=== PATIENT | female | born 1985 | race Caucasian/White ===

== ENCOUNTER 2019-01-30 04:00 | Inpatient (IN) ==
[2019-01-30] MEDS ORDERED: *HR* Nalbuphine 10 MG/ML AMPUL IVP PRN (05:08)
[2019-01-30] MEDS ORDERED: Famotidine 20 MG/2 ML VIAL IVP PRN (05:08)
[2019-01-30] MEDS ORDERED: Metoclopramide 10 MG/2 ML VIAL IVP PRN (05:08)
[2019-01-30] MEDS ORDERED: Naloxone 0.4 MG/ML INJ IVP PRN (05:08)
[2019-01-30] MEDS ORDERED: Ringers Solution, Lactated 1,000 ML IVC SCH (05:15)
[2019-01-30] MEDS ORDERED: Oxytocin 20 units/ LR 1000 mL 20 UNIT/1,000 ML BAG IVC SCH ×2 (05:30→18:24)
--- NOTE | 2019-01-30 05:32 | Event Note ---
Date of Encounter: 01/30/19 Time of Encounter: 05:31 Cervical ripening balloon inserted without difficulty, 40mL sterile water instilled. Patient tolerated with minimal discomfort.
[2019-01-30] MEDS ORDERED: Bupivacaine-MPF 0.25% 10 ML VIAL EP ONE (09:12)
[2019-01-30] MEDS ORDERED: *HR* FentaNYL (PF) 100 MCG/2 ML VIAL EP ONE (09:12)
[2019-01-30] MEDS ORDERED: Epidural Premix (fent/bupiv) 110 ML EP SCH (09:15)
[2019-01-30] MEDS ORDERED: Bupivacaine-MPF 0.25% 10 ML VIAL ONE (09:16)
[2019-01-30] MEDS ORDERED: *HR* FentaNYL (PF) 100 MCG/2 ML VIAL ONE (09:16)
[2019-01-30 09:33] LABS: Basophils % 0.2 %; Eosinophils % 0.3 %; Hemoglobin 10.6 g/dL (11.5-15.4); Immature Granulocytes % 0.7 % (0-4); Mean Corpuscular HGB Conc 33.1 g/dL (31.6-35.5); Mean Corpuscular Hemoglobin 29.9 pg (28.0-33.3); Mean Corpuscular Volume 90.4 fL (83.0-100.0); Monocytes # 0.7 K/mcL (0.0-1.3); Monocytes % 6.9 %; Neutrophils # 5.2 K/mcL (1.6-8.9); Platelet Count 165 K/mcL (140-400); Red Blood Count 3.54 M/mcL (3.82-4.97); Red Cell Distribution Width 12.8 % (11.5-14.5); Segmented Neutrophils % 51.9 %
--- NOTE | 2019-01-30 11:23 | Anesthesia Evaluation PreOp ---
Date of Encounter: 01/30/19 Time of Encounter: 10:38 - Past History Planned Operation: JONN Cardiac History: Denies any Significant Hx Pulmonary History: Denies Any Significant HX MACHINE ENGRAVER History: Denies Any Significant HX Other Medical History: Denies Any Significant HX Anesthesia History: No Prior Anesthetic Complications (JONN x 1--no issues; Denies personal and family h/o GA complications) : Yes Alcohol Use: none Drug use: none Medications and Allergies Tablet 1 tab PO DAILY 01/30/19 [History] Allergy/AdvReac Type Severity Reaction Status Date / Time Cefprozil [From Cefzil] Allergy Hives Verified 01/30/19 04:43 - Meds/Allergy Pre-op Review Medications Reviewed: Yes Allergies Reviewed: Yes Beta Blockers on Current Med List: No Anesthesia Results - Labs 01/30/19 05:00 Anesthesia Exam 122/80, HR 62, RR 20 O2 Sat Height 1.75 m Weight 78.471 kg NPO (# of Hours): solids >7hrs Pain Scale: 8 Pain Scale Used: Hawk-Mcfadden (Faces) - HEENT Pupil (Motor): Pupils equal Mallampati: II Teeth: Normal Oral Opening: Greater than 3 - MACHINE ENGRAVER LOC: Oriented MACHINE ENGRAVER Motor: Normal RUE, Normal LUE, Normal RLE, Normal LLE, Normal Face MACHINE ENGRAVER Sensory: Normal: RUE, LUE, RLE, LLE, Face - Cardiac Rhythm: Regular Murmur: None - Pulmonary Breath Sounds: bilateral Clear Respiratory Effort: Symmetrical Anesthesia Assess/Plan ASA Score: 2 Level of consciousness: Cooperative, Oriented, Tranquil Anesthetic Plan: Epidural Autologous Blood: No Monitoring Plan: Standard Monitors Recovery Plan: Other
--- NOTE | 2019-01-30 11:25 | Anesthesia Procedures ---
Date of Encounter: 01/30/19 Time of Encounter: 11:23 Procedures: Anesthesia - Epidural/Spinal Patient ID/Chart reviewed: Yes Patient examined: Yes OB Eval: Gestational age: 39 weeks 5 days OB Eval: : 2 OB Eval: Hx Para: 1 OB Eval: Contractions: Non-stressed pattern Consent Obtained: Yes Supplemental Oxygen: None/Room Air Site Prep: Aseptic Technique, Sterile prep and drape, Povidone-Iodine 1% Patient position: upright Local Anesthetic: Lidocaine 1% Amount of Local Anesthetic used: 5 Touhy Needle Gauge: 18 Touhy Needle Depth (cm): 5 Catheter Depth at Skin (cm): 10 Test Dose (1.5% Lido + Epi): Volume given (mls): 5 Test Dose Result: Negative Loading Dose: 0.25% Marcaine (mls): 5 Loading Dose: Fentanyl (mcg): 100 Loading Dose Administered: Thru Catheter Infusion Med: 0.125% Bupivacaine w/ 2 mcg/ml Fentanyl Infusion Rate (mls/hr): 14 (w/ demand bolus of 5mL q30min PRN) Catheter Secured in Place: Tegaderm, Tape Interspace Used: L3-L4 Loss of Resistance (BUDDY): Yes Blood: No CSF: No Paresthesia: No Procedure: successful on 2nd attempt--1st attempt catheter was inadvertantly placed into epidural vein; patient tolerated procedure well; VSS Vitals + FHT's: see Lisa RN's electronic documentation
--- NOTE | 2019-01-30 15:03 | OB/GYN History & Physical ---
Date of Encounter: 01/30/19 Time of Encounter: 07:30 Assessment and Plan (1) 39 weeks gestation of Current visit: Yes Status: Acute History of Present Illness Chief complaint: induction HPI: Ms. Hanson is a 34 year old female who presents to labor and delivery for induction at 39 weeks and 4 days. She is doing well. She is having no complaints of any kind today. Baby is been active. She has allergies to Cefzil. Current medications include vitamins. She has no chronic medical conditions. Surgical history includes a left nephrectomy. She has a history of abnormal Pap smears. She has no history of STDs or pelvic infections. Socially she denies tobacco, alcohol, illicit drug use. Family history significant for diabetes and hypertension. Obstetric history significant for one term vaginal delivery uncomplicated. Past Med Surg Social Fam HX - Past Medical History Medical history: no medical history Psychiatric history: no psych history - Past Surgical History Surgical History: other Additional surgical history: left ovary removed - Social History Smoking Status: Former smoker Smokeless Tobacco Status: No Alcohol use: none Drug use: none - Family History Mother Adopted: No Living Status: Still Living Hx Family Cardiac Disorders: No Hx Family Respiratory Disorders: No Hx Family Cancer: No Hx Family GI Disorders: No Hx Family Genitourinary Disorders: No Hx Family Endocrine Disorder: No Hx Family Musculoskeletal Disorders: No Hx Family Neuromuscular Disorders: No Hx Family Neurologic Disorders: No Hx Family HEENT Disorders: No Hx Family Autoimmune Disorders: No Hx Family Reproductive Disorders: No Hx Family Psychosocial Disorders: No Hx Family Medical Disorders: Yes (graves disease) Obstetrical History - Pregnancies : 2 Para: 1 Term: 1 Livin Medications and Allergies Tablet 1 tab PO DAILY 01/30/19 [History] Allergy/AdvReac Type Severity Reaction Status Date / Time Cefprozil [From Cefzil] Allergy Hives Verified 01/30/19 04:43 Review of System OB All systems PM: reviewed and no additional remarkable complaints except as stated Exam - Constitutional Constitutional: well developed, well nourished, no acute distress, average body habitus - HEENT HEENT: EOMI, PERRL - Neck Neck exam: full ROM, normal inspection - Lungs Respiratory exam: CTAB - Cardiovascular Cardiovascular exam: RRR - Abdomen Abdomen: Present: bowel sounds normal, gravid, non tender - Extremities Extremities exam: full ROM - Vagina Vagina: Present: normal moisture - Cervix Dilation: 8 Effacement: 80 Station: -1 - Uterus Uterus exam: Present: normal size - Anus/Rectum Anus/Rectum: Present: normal perianal skin Results Result Diagrams: 01/30/19 05:00 Abnormal lab results RBC 3.54 M/mcL (3.82-4.97) L 01/30/19 05:00 Hgb 10.6 g/dL (11.5-15.4) L 01/30/19 05:00 Hct 32.0 % (35.3-44.9) L 01/30/19 05:00 MPV 13.0 fL (9.4-12.4) H 01/30/19 05:00 All other labs normal. - VTE Reasons for not Prescribing Prophylaxis: Treatment not Indicated - Low risk for VTE
--- NOTE | 2019-01-30 15:45 | OB/GYN Procedure Note ---
Delivery - Delivery Date: 01/30/19 Provider: Oren De La Cruz Intrapartum events: none Delivery induction: oxytocin, huber Delivery augmentation: rupture of membranes Delivery monitor: external FHT, external uterine Anesthesia: epidural Quantitated Blood Loss: 300 - Infant (s) Infant A Delivery Date: 01/30/19 Delivery Time: 15:24 Presentation: vertex Position: OA Route of delivery: Gender: Male Viability: Viable at 1 minute: 8 at 5 mins: 9 Shoulder Dystocia: not encountered Specimens collected: cord blood Placenta: spontaneous Cord: 3 umbilical vessels - Repair Episiotomy: none Laceration Description: None - Complications Delivery complications: none Delivery comments: This patient progressed complete and pushing. She had a rapid spontaneous vaginal delivery of a male over an intact perineum. Infant's head was in the perineum easily with 1 push. There was a cord around the neck 1 which was easily reduced. The rest the was then delivered without difficulty with 1 push. cried immediately upon delivery. Cord was cut to cut. The infant was in past nurse in attendance. Cord blood was obtained. The placenta was delivered spontaneously and intact. There are no cervical, vaginal, per iurethral or perineal lacerations noted. Patient delivered a male infant. Weight is pending his mother skin the skin. Apgars are 8 at 1 minute and 9 at 5 minutes. Estimated blood loss is 300 mL. - Disposition Mom disposition: stable in LDR disposition: stable in LDR
[2019-01-30] MEDS ORDERED: Measles/Mumps/Rubella Vacc 0.5 ML VIAL SQ PRN (18:24)
[2019-01-30] MEDS ORDERED: Acetaminophen 325 MG TABLET PO PRN (18:24)
[2019-01-30] MEDS: Ibuprofen 600 MG TABLET PO PRN (20:12)
[2019-01-31] MEDS: Ibuprofen 600 MG TABLET PO PRN ×2 (01:36→08:44)
[2019-01-31 08:10] VITALS: BP 106/70
[2019-01-31] MEDS ORDERED: Prenatal Vit/FA 1 EACH TABLET PO SCH (09:00)
--- NOTE | 2019-01-31 09:43 | Discharge Summary ---
Date of Encounter: 01/31/19 Time of Encounter: 09:40 - Discharge Diagnosis (1) Status post vaginal delivery Priority: Primary Status: Acute Comments: Patient meeting day one milestones. Pain well-controlled with prescribed medications. Voiding without difficulty, tolerating regular diet, bleeding light. No bowel movement yet. Anticipate discharge today (2) Breast feeding status of mother Priority: Secondary Status: Acute Comments: support as needed We will provide breast pump prescription if needed - Discharge Medications Prescriptions: New Breast Pump [BREAST PUMP] 1 each .ROUTE AD #1 each Docusate [Colace] 100 mg PO BID capsule Ibuprofen [Motrin] 600 mg PO Q6HR PRN #60 tablet PRN Reason: Cramping Acetaminophen [Tylenol] 650 mg PO Q6HR PRN tablet PRN Reason: Mild Pain Continued Tablet 1 tab PO DAILY Home Medications: Tablet 1 tab PO DAILY 01/30/19 [History] Acetaminophen [Tylenol] 650 mg PO Q6HR PRN tablet 01/31/19 [Rx] Breast Pump [BREAST PUMP] 1 each .ROUTE AD #1 each 01/31/19 [Rx] Docusate [Colace] 100 mg PO BID capsule 01/31/19 [Rx] Ibuprofen [Motrin] 600 mg PO Q6HR PRN #60 tablet 01/31/19 [Rx] Allergies/Adverse Reactions: Allergy/AdvReac Type Severity Reaction Status Date / Time Cefprozil [From Cefzil] Allergy Hives Verified 01/30/19 04:43 Data Procedures and tests throughout hospitalization: Laboratory Tests 01/30/19 05:00 WBC 10.0 RBC 3.54 L Hgb 10.6 L Hct 32.0 L MCV 90.4 MCH 29.9 MCHC 33.1 RDW 12.8 Plt Count 165 MPV 13.0 H Immature Gran % 0.7 Seg Neutrophils % 51.9 Lymphocytes % 40.0 Monocytes % 6.9 Eosinophils % 0.3 Basophils % 0.2 Neutrophils # 5.2 Lymphocytes # 4.0 Monocytes # 0.7 Eosinophils # 0.0 Basophils # 0.0 Date of admission: 01/30/19 04:23 Primary care physician: Minh Barrios Consults: 01/30/19 18:24 Consult to Enterprise Engineer [CONS] Routine Comment: Vaginal delivery, consult needed Discharging clinician: Smita Bardales Anticipated date of discharge: 01/31/19 - Patient Status Disposition: Home, Self-Care Condition: Good Functional capacity at discharge: independent ambulation Overall status at discharge: patient is progressing back to baseline - Discharge Instructions Follow Up With: Minh Barrios [Primary Care Provider] - - Diet and Activity Activity: resume usual activities as tolerated Diet: regular diet Hospital Course Reason for admission: induction of labor, IUP at term Delivery: Episiotomy: none Laceration: none Other procedures: none complications: none Discharge diagnosis: IUP at term delivered [place] baby: male Hospital course: Delivery Date: 01/30/19 Provider: Oren De La Cruz Intrapartum events: none Delivery induction: oxytocin, huber Delivery augmentation: rupture of membranes Delivery monitor: external FHT, external uterine Anesthesia: epidural Quantitated Blood Loss: 300 - Infant (s) Infant A Delivery Date: 01/30/19 Infant Delivery Time: 15:24 Presentation: vertex Position: OA Route of delivery: Gender: Male Viability: Viable at 1 minute: 8 at 5 mins: 9 Shoulder Dystocia: not encountered Specimens collected: cord blood Placenta: spontaneous Cord: 3 umbilical vessels - Repair Episiotomy: none Laceration Description: None - Complications Delivery complications: none Delivery comments: This patient progressed complete and pushing. She had a rapid spontaneous vaginal delivery of a male over an intact perineum. 's head was in the perineum easily with 1 push. There was a cord around the neck 1 which was easily reduced. The rest the was then delivered without difficulty with 1 push. cried immediately upon delivery. Cord was cut to cut. The infant was in past nurse in attendance. Cord blood was obtained. The placenta was delivered spontaneously and intact. There are no cervical, vaginal, periurethral or perineal lacerations noted. Patient delivered a male infant. Weight is pending his mother skin the skin. Apgars are 8 at 1 minute and 9 at 5 minutes. Estimated blood loss is 300 mL. - Disposition Mom disposition: stable in LDR [place] disposition: stable in LDR Time Attestation: Total time spent providing and/or coordinating discharge services: Time Spent: Less than 30 minutes Exam - Constitutional Vitals: Temp Pulse Resp BP Pulse Ox 98.4 F 76 16 106/70 98 01/31/19 07:40 05/14/19 07:40 01/31/19 07:40 01/31/19 07:40 01/31/19 03:22 General appearance IM: A&O X 3, pleasant, no acute distress, answers questions a ppropriately - Respiratory Respiratory exam: Present: CTAB - Cardiovascular Cardiovascular exam IM: Present: RRR, +S1, +S2 - GI/Abdominal GI/Abdominal exam IM: normal bowel sounds, soft - Rectal Rectal exam: deferred - External exam: normal external exam Uterine Tone: Firm Uterus Position: At Umbilicus, Midline - Extremities Exam Extremities exam IM: Present: full ROM, normal capillary refill, normal inspection - Neurological Exam Neurological exam: alert, normal gait, oriented X3
[2019-01-31 10:26] LABS: Basophils % 0.3 %; Eosinophils # 0.1 K/mcL (0.0-0.6); Eosinophils % 0.5 %; Hematocrit 31.9 % (35.3-44.9); Hemoglobin 10.3 g/dL (11.5-15.4); Immature Granulocytes % 1.1 % (0-4); Lymphocytes # 2.4 K/mcL (0.6-4.6); Lymphocytes % 20.6 %; Mean Corpuscular HGB Conc 32.3 g/dL (31.6-35.5); Mean Corpuscular Hemoglobin 29.5 pg (28.0-33.3); Mean Corpuscular Volume 91.4 fL (83.0-100.0); Mean Platelet Volume 12.8 fL (9.4-12.4); Monocytes # 0.7 K/mcL (0.0-1.3); Monocytes % 6.1 %; Neutrophils # 8.1 K/mcL (1.6-8.9); Platelet Count 138 K/mcL (140-400); Red Blood Count 3.49 M/mcL (3.82-4.97); Segmented Neutrophils % 71.4 %
== END 2019-01-31 16:04 | disposition home or self-care (01) | DRG 807 ==
LOC: 1NENULAB 04:23 → 1NENUOBS 18:00
PROVIDERS: ADMIT Obstetrics & Gynecology; ATTEND Obstetrics & Gynecology